=== PATIENT | male | born 1955 | race Caucasian/White ===

== ENCOUNTER 2020-07-19 16:20 | Emergency (ER) | payer MEDICARE ==
--- NOTE | 2020-07-19 16:41 | RAD ---
EXAM: Chest 2 views: HISTORY: Sharp left chest pain COMPARISON: None. FINDINGS: There is a normal-sized cardiomediastinal silhouette. There is no evidence of consolidation, mass, or pleural effusion. No acute osseous abnormality. IMPRESSION: No evidence of acute cardiopulmonary disease
[2020-07-19 17:07] LABS: #Basophils 0.1 thou/uL (0.0-0.2); #Eosinphils 0.2 thou/uL (0.0-0.7); #Lymphocytes 1.8 thou/uL (1.20-3.40); #Monocytes 0.7 thou/uL (0.11-0.59); #Neutrophils 4.2 thou/uL (1.40-6.50); %Basophils 1.3 % (0.0-1.0); %Eosinophils 2.3 % (0.0-10.0); %Lymphocytes 25.9 % (21.0-51.0); %Monocytes 9.7 % (0.0-10.0); %Neutrophils 60.9 % (42.0-75.0); Hemoglobin 14.6 g/dL (14.0-18.0); Mean Corpuscular HGB CONC 33.2 g/dL (32.0-36.0); Mean Corpuscular Hemoglobin 30.9 pg (27.0-31.0); Mean Corpuscular Volume 92.9 fL (78.0-98.0); Mean Platelet Volume 7.9 fL (7.4-10.4); Platelet Count 203 thou/uL (130-400); Red Blood Cell (RBC) Count 4.72 mill/uL (4.70-6.10); White Blood Cell (WBC) Count 6.9 thou/uL (4.8-10.8)
[2020-07-19 17:27] LABS: ALT (SGPT) 21 U/L (8-55); AST (SGOT) 22 U/L (5-34); Albumin 4.3 g/dL (3.4-4.8); Alkaline Phosphatase 39 U/L (40-110); Anion Gap 12 mmol/L (10-20); BUN (Urea Nitrogen) 16 mg/dL (8.4-25.7); Bilirubin, Total 0.4 mg/dL (0.2-1.2); Calc. Creatinine Clearance 0 mL/min (70-130); Carbon Dioxide 28 mmol/L (23-31); Chloride 102 mmol/L (98-107); Globulin 2.4 g/dL (2.4-3.5); Glucose 101 mg/dL (80-115); Potassium 4.3 mmol/L (3.5-5.1); Protein, Total 6.7 g/dL (5.8-8.1); Sodium 138 mmol/L (136-145)
--- NOTE | 2020-07-22 16:28 | EKG ---
Test Reason : Blood Pressure : / mmHG Vent. Rate : 061 BPM Atrial Rate : 061 BPM P-R Int : 184 ms QRS Dur : 092 ms QT Int : 408 ms P-R-T Axes : 058 -04 040 degrees QTc Int : 410 ms Normal sinus rhythm Normal ECG Confirmed by AYLA JONES M.D. ([id number]), marketing editor ROXANNA COSBY ([id number]) on 07/22/2020 4:28:25 PM Referred By: Confirmed By:AYLA JONES M.D.
--- NOTE | 2020-07-22 16:29 | EKG ---
Test Reason : Blood Pressure : / mmHG Vent. Rate : 064 BPM Atrial Rate : 064 BPM P-R Int : 170 ms QRS Dur : 088 ms QT Int : 408 ms P-R-T Axes : 029 016 038 degrees QTc Int : 420 ms Normal sinus rhythm Normal ECG Confirmed by AYLA JONES M.D. ([id number]), book or script editor ROXANNA COSBY ([id number]) on 07/22/2020 4:29:31 PM Referred By: Confirmed By:AYLA JONES M.D.
== END 2020-07-19 20:30 | disposition home or self-care (01) ==
LOC: ERS 16:20
DX: R07.89 Other chest pain (principal)
CPT/HCPCS: 36415; 71046; 80053; 84484; 85025; 93005